=== PATIENT | female | born 1965 | race Caucasian/White ===

== ENCOUNTER 2022-10-23 17:43 | Emergency (ER) | payer SELFPAY ==
[2022-10-23] MEDS ORDERED: PHENAZOPYRIDINE HCL 100 MG TABLET (FP) PO ONE (17:50)
[2022-10-23] MEDS ORDERED: IBUPROFEN 600 MG TABLET (FP) PO ONE ×2 (17:50→17:55)
[2022-10-23] MEDS ORDERED: PHENAZOPYRIDINE HCL 100 MG TABLET (FP) ONE (17:55)
[2022-10-23 18:03] VITALS: BP 126/57; PULSE 90; RESP 16; TEMP 99.5; BMI 22.8
[2022-10-23 18:41] LABS: EPITHELIAL CELLS FEW /hpf
== END 2022-10-23 19:00 | disposition home or self-care (01) ==
LOC: FER 17:43
DX: N12 Tubulo-interstitial nephritis, not specified as acute or chronic (principal)
CPT/HCPCS: 81003; 81015; 87086; 87186; 99283-25